=== PATIENT | female | born 1965 | race Asian ===

== ENCOUNTER 2019-10-16 14:05 | Emergency (ER) | payer SELFPAY ==
[~2019-10-16] VITALS: Ht 165.1 cm; Wt 87.0 kg
--- NOTE | 2019-10-16 14:35 | NUR ---
No answer from lobby when called for room.
[2019-10-16 14:37] LABS: BASOPHILS # (AUTO) 0.06 x10^3/uL (0-0.1); BASOPHILS % (AUTO) 0 % (0-1); EOSINOPHILS # (AUTO) 0.17 x10^3/uL (0-0.4); EOSINOPHILS % (AUTO) 1 % (1-7); LYMPHOCYTES # (AUTO) 3.64 x10^3/uL (1-3.4); LYMPHOCYTES % (AUTO) 26 % (22-44); MD NO; MEAN CORPUSCULAR HEMOGLOBIN 35.2 pg (27.0-34.8); MEAN CORPUSCULAR HGB CONC 33.7 g/dL (32.4-35.8); MEAN CORPUSCULAR VOLUME 104.6 fL (80-100); MEAN PLATELET VOLUME 7.9 fL (7.4-10.4); MONOCYTES # (AUTO) 1.14 x10^3/uL (0.2-0.8); MONOCYTES % (AUTO) 8 % (2-9); NEUTROPHILS # (AUTO) 9.05 x10^3/uL (1.8-6.8); NEUTROPHILS % (AUTO) 64 % (42-75); PLATELET COUNT 319 x10^3/uL (130-400); RED BLOOD COUNT 4.29 x10^6/uL (3.82-5.3); RED CELL DISTRIBUTION WIDTH 12.2 % (9.6-15.2)
--- NOTE | 2019-10-16 14:40 | NUR ---
Pt to room from lobby.
[2019-10-16 14:48] LABS: ALBUMIN 3.9 g/dL (3.4-5.0); ANION GAP 5 mmol/L (5-15); CALCIUM 8.6 mg/dL (8.5-10.1); CHLORIDE 101 mmol/L (98-107)
[2019-10-16 14:55] LABS: CREATININE 0.52 mg/dL (0.55-1.02)
--- NOTE | 2019-10-16 14:58 | NUR ---
ASSUMED CARE OF PATIENT. PATIENT REPORTS PELVIC PAIN AND PAINFUL URINATION. VS STABLE. CALL LIGHT IN PLACE. WILL CONTINUE TO MONITOR.
--- NOTE | 2019-10-16 15:06 | NUR ---
DR GUAN IN ROOM
[2019-10-16 15:24] LABS: MICROSCOPIC NOT IND
[2019-10-16 15:38] LABS: CULTURE INDICATED? NO
--- NOTE | 2019-10-16 15:55 | NUR ---
PT RESTING IN ROOM. REGULAR RESP. NO ACUTE DISTRESS NOTED. WILL CONTINUE TO MONITOR.
--- NOTE | 2019-10-16 16:51 | NUR ---
PT RESTING IN ROOM REGULAR RESP. NO ACUTE DISTRESS NOTED. CALL LIGHT IN PLACE. WILL CONTINUE TO MONITOR.
[2019-10-16] MEDS ORDERED: OMNIPAQUE 350 MG/ML, 100ML BOTTLE ONE (17:29)
--- NOTE | 2019-10-16 17:34 | NUR ---
PT BACK FROM CT AND RESTING IN ROOM.
[2019-10-16 18:08] VITALS: BP 140/79
--- NOTE | 2019-10-16 18:22 | NUR ---
DURING DISCHARGE TEACHING MARIANNE HAD REQUESTED A PELVIC EXAM. DR GUAN WAS NOTIFIED AND SAID THAT A PELVIC EXAM WAS NOT NEEDED AT THIS TIME DUE TO THE TESTS THAT WAS RUN ON HER. DR GUAN EXPLAINED THAT SHE HAS A CHRONIC ISSUE AND NEEDS TO SEE A GYNO OR HER PCP.
== END 2019-10-16 18:26 | disposition home or self-care (01) ==
LOC: ED 18:20
DX: R10.32 Left lower quadrant pain (principal); R10.11 Right upper quadrant pain; R10.31 Right lower quadrant pain; J20.8 Acute bronchitis due to other specified organisms; F17.200 Nicotine dependence, unspecified, uncomplicated
CPT/HCPCS: 36415; 74177; 80048; 81003; 82040; 84703; 85025; 99284; Q9967